=== PATIENT | female | born 1980 | race Caucasian/White ===

== ENCOUNTER 2016-06-10 16:17 | Emergency (ER) | payer OTHER ==
[2016-06-10] MEDS ORDERED: HYDROcod/ACETAM 5/325 MG TABLET PO STA (17:52)
[2016-06-10] MEDS ORDERED: HYDROcod/ACETAM 5/325 MG TABLET ONE (18:05)
== END 2016-06-10 18:45 | disposition home or self-care (01) ==
DX: S67.21XA Crushing injury of right hand, initial encounter (principal); S60.221A Contusion of right hand, initial encounter; W31.89XA Contact with other specified machinery, initial encounter; Y93.89 Activity, other specified; Y92.69 Other specified industrial and construction area as the place of occurrence of the external cause; Y99.0 Civilian activity done for income or pay; Z87.891 Personal history of nicotine dependence
CPT/HCPCS: 1040M; 29125; 73130; 99283; A9270

== ENCOUNTER 2016-12-06 17:01 | Emergency (ER) | payer OTHER ==
--- NOTE | 2016-12-06 17:44 | ED Physician Documentation ---
PD HPI ABD PAIN - Stated complaint Stated Complaint: BLOOD IN STOOL - Chief complaint Chief Complaint: Abd Pain - History obtained from History obtained from: Patient - History of Present Illness Timing - onset: Other (36-year-old woman with no significant past medical history with a small amount of hematochezia today and some lower abdominal cramping. 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: Endometriosis Musculoskeletal: Chronic back pain - Past Surgical History Past Surgical History: Yes HEENT: Tonsil/Adenoidectomy - Present Medications Home Medications: Ambulatory Orders Medication Instructions Recorded Confirmed Docusate Sodium 100 mg PO BID #60 capsule 12/06/16 - Allergies Allergies/Adverse Reactions: Allergies Allergy/AdvReac Type Severity Reaction Status Date / Time hydromorphone HCl * Allergy Respiratory Verified 06/10/16 16:30 [From Dilaudid] - Social History Does the pt smoke?: No Smoking Status: Former smoker Does the pt drink ETOH?: No Does the pt have substance abuse?: No - Immunizations Immunizations are current?: Yes - POLST Patient has POLST: No PD ED PE NORMAL - Vitals Vital signs reviewed: Yes - General General: Alert and oriented X 3, No acute distress - Abdomen Abdomen: Soft, Non tender - Rectal Rectal: Other (No external hemorrhoids or gross blood; with Margaret Castillo RN chaperoning) - Neuro Neuro: Alert and oriented X 3, Normal speech - Psych Psych: Normal mood, Normal affect Results - Vitals Vitals: Vital Signs - 24 hr 12/06/16 12/06/16 17:03 18:21 Temperature 37.3 C Heart Rate 73 68 Respiratory 18 14 Rate Blood Pressure 114/77 115/72 O2 Saturation 95 98 Oxygen O2 Source Room air - Labs Labs: Laboratory Tests 12/06/16 17:55 Hgb 13.8 Hct 39.7 PD MEDICAL DECISION MAKING - ED course ED course: She presents with a complaint of hematochezia, has a benign belly and no gross blood per rectum. Her H&H are reassuring. Advised conservative care with a stool softener at this juncture and to follow-up for colonoscopy if symptoms do not improve. Departure - Departure Disposition: 01 Home, Self Care Clinical Impression: Hematochezia Condition: Good Record reviewed to determine appropriate education?: Yes Instructions: ED Hematochezia Stable Follow-Up: CHUCK MATA MD [Provider Admit Priv/Credential] - Prescriptions: Docusate Sodium 100 mg PO BID #60 capsule Comments: Take a stool softener and drink plenty of fluids. If symptoms do not go away after a few days follow-up with the surgeon listed on this form for evaluation for potential colonoscopy. Discharge Date/Time: 12/06/16 18:26
[2016-12-06 18:02] LABS: HCT - HEMATOCRIT 39.7 % (37.0-47.0); HGB - HEMOGLOBIN 13.8 g/dL (12.0-16.0)
[2016-12-06 18:22] VITALS: BP 115/72
== END 2016-12-06 18:26 | disposition home or self-care (01) ==
LOC: ED 17:01
DX: K92.1 Melena (principal); Z87.891 Personal history of nicotine dependence
CPT/HCPCS: 36415; 85014; 85018; 99283

== ENCOUNTER 2017-09-17 12:58 | Outpatient (CLI) | payer MEDICAID | END 2017-09-17 12:59 | disposition critical access hospital (66) | LOC: EMS 12:58 | PROVIDERS: ATTEND Surgery | DX: S69.91XA Unspecified injury of right wrist, hand and finger(s), initial encounter (principal); W01.0XXA Fall on same level from slipping, tripping and stumbling without subsequent striking against object, initial encounter | CPT/HCPCS: A0425; A0429 ==

== ENCOUNTER 2017-09-17 13:42 | Emergency (ER) | payer MEDICAID, OTHER ==
[2017-09-17 13:59] VITALS: BP 115/83
--- NOTE | 2017-09-17 14:05 | ED Physician Documentation ---
PD HPI UPPER EXT INJURY - Stated complaint Stated Complaint: FALL/POSS BROKEN WRIST - Chief complaint Chief Complaint: Ext Problem - History obtained from History obtained from: Patient, EMS - History of Present Illness Location: Right, Wrist Type of injury: Fall Where injury occurred: Home Timing - onset: How many hours ago (1) Timing - duration: Hours (1) Timing - details: Abrupt onset Pain level max: 8 Pain level now: 8 Improved by: Rest Worsened by: Moving, Palpating Associated symptoms: Swelling. No: Weakness, Numbness, Tingling Contributing factors: No: Prior ortho surgery Recently seen: Not recently seen - Additonal information Additional information: R wrist pain s/p falling backwards while running from [place]. Pt is left handed. 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 Musculoskeletal: Chronic back pain - Past Surgical History Past Surgical History: Yes HEENT: Tonsil/Adenoidectomy - Present Medications Home Medications: Ambulatory Orders Medication Instructions Recorded Confirmed Docusate Sodium 100 mg PO BID #60 capsule 12/06/16 Hydrocodone/Acetaminophen 1 - 2 each PO Q6H PRN #14 tablet 09/17/17 [Hydrocodon-Acetaminophen 5-325] - Allergies Allergies/Adverse Reactions: Allergies Allergy/AdvReac Type Severity Reaction Status Date / Time hydromorphone HCl * Allergy Respiratory Verified 06/10/16 16:30 [From Dilaudid] - Social History Does the pt smoke?: No Smoking Status: Never smoker Does the pt drink ETOH?: No Does the pt have substance abuse?: No - Immunizations Immunizations are current?: Yes - POLST Patient has POLST: No PD ED PE NORMAL - Vitals Vital signs reviewed: Yes - General General: Alert and oriented X 3 - HEENT HEENT: Moist mucous membranes - Neck Neck: Supple, no meningeal sign - Cardiac Cardiac: RRR, Strong equal pulses - Respiratory Respiratory: No respiratory distress, Clear bilaterally - Abdomen Abdomen: Soft, Non tender - Back Back: No spinal TTP - Derm Derm: Warm and dry - Extremities Extremities: Other (R wrist - distal radius deformity. NVI. o/w normal exam. ) - Neuro Neuro: Alert and oriented X 3 - Psych Psych: Normal mood, Normal affect Results - Vitals Vitals: Vital Signs - 24 hr 09/17/17 13:45 Temperature 36.6 C Heart Rate 73 Respiratory 16 Rate Blood Pressure 115/83 H O2 Saturation 100 Oxygen O2 Source Room air - Rads (name of study) R wrist xray Radiology: Prelim report reviewed, EMP read contemporaneously, See rad report ( Distal radius intra-articular fracture with 18 degrees of angulation. ) R wrist post reduction Radiology: Prelim report reviewed, EMP read contemporaneously, See rad report ( Improved alignment with distal radius in neutral position. ) Procedures - Splint (location) R wrist Splint applied by: Physician, Tech Type of splint: Fiberglass, Short arm, Sugar tong Other: Patient tolerated well, No complications, Neurovascular intact, Good alignment, Sling provided - Reduction Body part reduced: Right, Wrist Fracture or dislocation: Fracture Anesthesia: Hematoma block, Lidocaine (enter cc) (10) Reduction aftercare: NV intact, Xray confirms reduction, Alignment improved, Splint applied (sugar tong), Sling PD MEDICAL DECISION MAKING - ED course Complexity details: reviewed results, re-evaluated patient, considered differential, d/w patient ED course: Patient is a 37-year-old female who presents to the emergency department with a right distal radius fracture. Hematoma block was utilized and the fracture was reduced under closed manipulation. Sugar tong splint applied. Will prescribe pain medication for home. Neurovascularly intact. We will have her follow-up with orthopedics for further evaluation and care. Patient counseled regarding signs and symptoms for which I believe and urgent re-evaluation would be necessary. Patient with good understanding of and agreement to plan and is comfortable going home at this time This document was made in part using voice recognition software. While efforts are made to proofread this document, sound alike and grammatical errors may occur. Patient is left-handed Departure - Departure Disposition: Home, Self Care Clinical Impression: Distal radius fracture, right Qualifiers: Encounter type: initial encounter Fracture type: closed Fracture morphology: unspecified fracture morphology Qualified Code(s): S52.501A - Unspecified fracture of the lower end of right radius, initial encounter for closed fracture Condition: Good Instructions: ED Fx Forearm Radius Ulna Redu Requ Follow-Up: [facility] [Provider Group] - Within 1 week Prescriptions: Hydrocodone/Acetaminophen [Hydrocodon-Acetaminophen 5-325] 1 - 2 each PO Q6H PRN #14 tablet PRN Reason: pain Comments: Keep the splint on and wear the sling until released by orthopedics. Elevate the area as much as you can. Return if you worsen. You need to follow-up with orthopedics within the next week for repeat evaluation. Do not drink alcohol or drive while on narcotic pain medicine. Note that many narcotic pain relievers also contain tylenol/acetaminophen. Please ensure that your total dose of acetaminophen from all sources does not exceed 3 grams (3000mg) per day. You may constipated on this medication, take a stool softener such as "Colace" twice a day while you are on it. Also recommend a obov-qgt-[id number] laxative such as senna or MiraLAX any day that you do not have a bowel movement. If you received narcotic pain medication in the emergency department, do not drive or operate machinery for the next 24 hours. Discharge Date/Time: 09/17/17 15:30
[2017-09-17] MEDS: KETOROLAC 60 MG/2 ML VIAL IVP STA (14:14)
--- NOTE | 2017-09-17 14:31 | XRAY Report ---
EXAM: RIGHT WRIST RADIOGRAPHY EXAM DATE: 09/17/2017 02:25 PM. CLINICAL HISTORY: R wrist pain s/p fall. COMPARISON: None. TECHNIQUE: 4 views. FINDINGS: Bones: There is an intra-articular comminuted fracture of the distal radial metaphysis. There is appr oximately 18 degrees of angulation on the lateral image. There is mild impaction. No ulna or carpal f racture. Joints: Normal. No subluxations. Soft Tissues: Normal. No soft tissue swelling. IMPRESSION: Distal radius intra-articular fracture with 18 degrees of angulation. [facility] Referring Provider Line: [phone] SITE ID: [id number]
--- NOTE | 2017-09-17 14:31 | XRAY Preliminary Report ---
Exam: XR WRIST 4 VIEW RT IMPRESSION: Distal radius intra-articular fracture with 18 degrees of angulation. [facility] SITE ID: [id number]
[2017-09-17] MEDS ORDERED: LIDOCAINE 2% 10 ML MDV SUBQ STA (14:39)
--- NOTE | 2017-09-17 15:37 | XRAY Preliminary Report ---
Exam: XR WRIST 2 VIEW RT IMPRESSION: Improved alignment with distal radius in neutral position. [facility] SITE ID: [id number]
--- NOTE | 2017-09-17 15:37 | XRAY Report ---
EXAM: RIGHT WRIST RADIOGRAPHY EXAM DATE: 09/17/2017 03:16 PM. CLINICAL HISTORY: Fracture post reduction. COMPARISON: 09/17/2017. TECHNIQUE: 2 views. FINDINGS: Bones: There is a distal radius comminuted fracture. Offset is decreased. The distal radius is in maurice tral position on the lateral image. Joints: Normal. No subluxations. Soft Tissues: The cast has been applied. IMPRESSION: Improved alignment with distal radius in neutral position. [facility] Referring Provider Line: [phone] SITE ID: [id number]
== END 2017-09-17 15:30 | disposition home or self-care (01) ==
LOC: EDUNIT# → ED 13:42
DX: S52.571A Other intraarticular fracture of lower end of right radius, initial encounter for closed fracture (principal); W01.0XXA Fall on same level from slipping, tripping and stumbling without subsequent striking against object, initial encounter; Y93.02 Activity, running; Y92.007 Garden or yard of unspecified non-institutional (private) residence as the place of occurrence of the external cause
CPT/HCPCS: 25605; 96374; 99283; 99284

== ENCOUNTER 2018-06-26 13:23 | Emergency (ER) | payer MEDICAID ==
[2018-06-26 13:30] VITALS: BP 125/77
--- NOTE | 2018-06-26 13:52 | ED Physician Documentation ---
History of Present Illness - Stated complaint Stated Complaint: FEMALE - Chief complaint Chief Complaint: General - History obtained from History obtained from: Patient - History of Present Illness Timing: Today Pain level max: 0 Pain level now: 0 Improved by: nothing Worsened by: nothing - Additonal information Additional information: 38-year-old female is asymptomatic today. She is requesting an STD check. Her partner recently tested positive for Ureaplasma as well as mycoplasma hominis. He is not having symptoms either but was placed on antibiotics. 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 Musculoskeletal: Chronic back pain - Past Surgical History Past Surgical History: Yes HEENT: Tonsil/Adenoidectomy - Present Medications Home Medications: Ambulatory Orders Medication Instructions Recorded Confirmed No Known Home Medications 06/26/18 06/26/18 - Allergies Allergies/Adverse Reactions: Allergies Allergy/AdvReac Type Severity Reaction Status Date / Time hydromorphone HCl * Allergy Respiratory Verified 06/26/18 13:29 [From Dilaudid] - Social History Does the pt smoke?: No Smoking Status: Never smoker Does the pt drink ETOH?: No Does the pt have substance abuse?: No - Immunizations Immunizations are current?: Yes - POLST Patient has POLST: No PD ED PE NORMAL - Vitals Vital signs reviewed: Yes - General General: Alert and oriented X 3, No acute distress - HEENT HEENT: Moist mucous membranes - Neck Neck: Supple, no meningeal sign - Cardiac Cardiac: RRR - Respiratory Respiratory: No respiratory distress, Clear bilaterally - Abdomen Abdomen: Soft, Non tender, Non distended - Derm Derm: Warm and dry - Neuro Neuro: Alert and oriented X 3 Results - Vitals Vitals: Vital Signs - 24 hr 06/26/18 13:26 Temperature 36.5 C Heart Rate 81 Respiratory 18 Rate Blood Pressure 125/77 O2 Saturation 100 Oxygen O2 Source Room air PD MEDICAL DECISION MAKING - ED course Complexity details: considered differential, d/w patient ED course: Urine will be sent for gonorrhea and Chlamydia testing. She declines a pelvic at this time. I think this is reasonable as she does not have symptoms. The organisms that her partner tested for are likely genital gonzalo and likely do not represent an infectious etiology. Will hold off on any treatment at this point. Patient counseled regarding signs and symptoms for which I believe and urgent re-evaluation would be necessary. Patient with good understanding of and agreement to plan and is comfortable going home at this time This document was made in part using voice recognition software. While efforts are made to proofread this document, sound alike and grammatical errors may occur. Departure - Departure Disposition: 01 Home, Self Care Clinical Impression: Encounter for medical assessment Condition: Good Instructions: STD Follow-Up: Yanira Quintanilla ARNP, MEDICAL ILLUSTRATOR-C [Primary Care Provider] - As Needed Comments: Mycoplasma hominis and Ureaplasma are normally part of the normal genital gonzalo and unless they are causing symptoms do not need treatment. Discharge Date/Time: 06/26/18 13:56
== END 2018-06-26 13:56 | disposition home or self-care (01) ==
LOC: ED 13:23
DX: Z11.3 Encounter for screening for infections with a predominantly sexual mode of transmission (principal)
CPT/HCPCS: 87491; 87591; 99282

== ENCOUNTER 2019-07-10 10:05 | Emergency (ER) | payer MEDICAID, OTHER ==
[2019-07-10] MEDS ORDERED: SODIUM CHLORIDE 0.9% 1,000 ML IV ONE (11:39)
[2019-07-10] MEDS ORDERED: DEXAMETHASONE 10 MG/ML VIAL IVP STA (11:39)
[2019-07-10] MEDS ORDERED: diphenhydrAMINE INJ 50 MG/ML VIAL IVP STA (11:39)
[2019-07-10] MEDS ORDERED: KETOROLAC 15 MG/ML VIAL IVP STA (11:40)
--- NOTE | 2019-07-10 11:55 | ED Physician Documentation ---
PD HPI HEADACHE - Stated complaint Stated Complaint: DUFFY - Chief complaint Chief Complaint: Neuro - History obtained from History obtained from: Patient (39-year-old female comes in today with a chief complaint of a headache on the right base of her skull. This is the first time she has had a headache like this. This is been ongoing for a week and a half. 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 She denies any triggering event or activity at work or her personal life. She has limited range of motion of her neck secondary to the pain. She denies any numbness tingling loss of strength to the right upper extremity. She denies nausea vomiting, vision changes, hearing problems. 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 Musculoskeletal: Chronic back pain - Past Surgical History Past Surgical History: Yes HEENT: Tonsil/Adenoidectomy - Present Medications Home Medications: Ambulatory Orders Medication Instructions Recorded Confirmed Ibuprofen [Motrin] 800 mg PO Q8H PRN #30 tablet 07/10/19 - Allergies Allergies/Adverse Reactions: Allergies Allergy/AdvReac Type Severity Reaction Status Date / Time hydromorphone HCl * Allergy Respiratory Verified 07/10/19 10:09 [From Dilaudid] - Social History Does the pt smoke?: No Smoking Status: Never smoker Does the pt drink ETOH?: No Does the pt have substance abuse?: No - Immunizations Immunizations are current?: Yes - POLST Patient has POLST: No PD ED PE NORMAL - General General: Alert and oriented X 3, Well developed/nourished - HEENT HEENT: Atraumatic, PERRL, EOMI, Ears normal, Moist mucous membranes, Pharynx benign - Neck Neck: No adenopathy - Cardiac Cardiac: RRR, No murmur - Respiratory Respiratory: No respiratory distress, Clear bilaterally - Back Back: No CVA TTP PD ED PE EXPANDED - Neck Neck: Other (Tender to palp to the right rhomboid, right trapezium. Right trapezium is tense. Limited active range of motion to the neck secondary to pain on the right side.) Results - Vitals Vitals: Vital Signs - 24 hr 07/10/19 07/10/19 07/10/19 10:10 10:54 12:17 Temperature 36.5 C Heart Rate 64 58 L Respiratory 14 14 Rate Blood Pressure 119/83 H 114/56 L O2 Saturation 98 100 100 Oxygen O2 Source Room air Departure - Departure Disposition: 01 Home, Self Care Clinical Impression: Headache Qualifiers: Headache type: tension-type Headache chronicity pattern: acute headache Intractability: not intractable Qualified Code(s): G44.209 - Tension-type headache, unspecified, not intractable Condition: Good Instructions: ED Headache Tension Prescriptions: Ibuprofen [Motrin] 800 mg PO Q8H PRN #30 tablet PRN Reason: PAIN &/OR FEVER Comments: as we discussed in the Ed today. Take a couple of days off of work and rest. i have given you a prescription for Ibuprofen 800 mg, take very 8 hours as needed for pain. As we discussed, it will take a couple of days for the tenesion in your neck to resolve. Apply warm, moist heat to the shoulder/ neck region for 15 - 30 mins, then do gentle range of motion & stretching with / to your neck and I showed you. You could also look at getting a massage as well. If your symptoms do not start to improve after 2-3 days, follow up with your PCP for further evaluation. Forms: Activity restrictions
[2019-07-10 12:17] VITALS: BP 114/56
== END 2019-07-10 13:21 | disposition home or self-care (01) ==
LOC: ED 10:05
DX: G44.209 Tension-type headache, unspecified, not intractable (principal)
CPT/HCPCS: 96374; 99283; 99284; J1200

== ENCOUNTER 2022-06-29 09:45 | Emergency (ER) | payer OTHER ==
--- NOTE | 2022-06-29 11:05 | ED Physician Documentation ---
PD HPI HEADACHE - Stated complaint Stated Complaint: MIGRAINE - Chief complaint Chief Complaint: Neuro - History obtained from History obtained from: Patient - History of Present Illness Timing - onset: How many days ago (2) Timing - onset during: Light activity Timing - duration: Days (2) Timing - details: Gradual onset, Still present Worst headache ever?: No: Worst headache ever? (has had similar but not for many years when younger. No recent illness, fever, head injury.) Location: Global Quality: Throbbing Associated symptoms: Nausea. No: Fever, Stiff neck, Weakness, Numbness, Vision changes Improved by: Rest, Dark room. No: Meds (tried Ibuprofen and Tylenol at home.) Worsened by: Light, Noise Contributing factors: No: Recent illness, Trauma Similar symptoms before: Diagnosis (migraines when younger.) Recently seen: Not recently seen Review of Systems Constitutional: denies: Fever, Chills Eyes: reports: Photophobia. denies: Loss of vision Nose: denies: Rhinorrhea / runny nose, Congestion Throat: denies: Sore throat Respiratory: denies: Cough GI: reports: Nausea. 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 Musculoskeletal: Chronic back pain - Past Surgical History Past Surgical History: Yes HEENT: Tonsil/Adenoidectomy - Present Medications Home Medications: Ambulatory Orders Medication Instructions Recorded Confirmed Ibuprofen [Motrin] 800 mg PO Q8H PRN #30 tablet 07/10/19 Ondansetron Odt [Zofran] 4 mg TL Q6H PRN #10 tablet 06/29/22 Prochlorperazine [Compazine] 5 mg PO Q8H PRN #10 tablet 06/29/22 Rizatriptan Benzoate [Rizatriptan] 5 mg PO Q8H PRN #5 tablet 06/29/22 - Allergies Allergies/Adverse Reactions: Allergies Allergy/AdvReac Type Severity Reaction Status Date / Time hydromorphone HCl * Allergy Respiratory Verified 06/29/22 09:55 [From Dilaudid] - Social History Does the pt smoke?: No Smoking Status: Never smoker Does the pt drink ETOH?: No Does the pt have substance abuse?: No - Immunizations Immunizations are current?: Yes - POLST Patient has POLST: No PD ED PE NORMAL - Vitals Vital signs reviewed: Yes - General General: Alert and oriented X 3, No acute distress, Well developed/nourished - HEENT HEENT: PERRL, EOMI (light sensitive), Other (fundi appear normal. ) - Neck Neck: Supple, no meningeal sign, No adenopathy - Derm Derm: Normal color, Warm and dry - Neuro Neuro: Alert and oriented X 3, No motor deficit, No sensory deficit Results - Vitals Vitals: Vital Signs - 24 hr 06/29/22 06/29/22 06/29/22 09:53 12:00 12:52 Temperature 36.4 C L Heart Rate 95 65 Respiratory 20 16 16 Rate Blood Pressure 117/83 H 105/74 O2 Saturation 99 98 06/29/22 06/29/22 13:33 13:50 Temperature 36.6 C Heart Rate 66 Respiratory 16 Rate Blood Pressure 103/67 O2 Saturation 99 Oxygen O2 Source Room air PD Medical Decision Making - ED course Complexity details: re-evaluated patient (mostly improved with IV fluids and toradol, compazine and benadryl (migraine cocktail). this is c/w migraine. Discussed with patient that might get some if starting pattern. Gave Rx for migraine meds to try for futher ones. ), considered differential (seems likely migraine, with symptoms c/w it. No red flags on history or exam to suggest need for workup. Can try treating as migraine. ), d/w patient Departure - Departure Disposition: 01 Home, Self Care Clinical Impression: Migraine headache Qualifiers: Migraine type: unspecified Status migrainosus presence: with status migrainosus Intractability: not intractable Qualified Code(s): G43.901 - Migraine, unspecified, not intractable, with status migrainosus Condition: Stable Record reviewed to determine appropriate education?: Yes Instructions: ED Headache Migraine Prescriptions: Prochlorperazine [Compazine] 5 mg PO Q8H PRN #10 tablet PRN Reason: Nausea / Vomiting Rizatriptan Benzoate [Rizatriptan] 5 mg PO Q8H PRN #5 tablet PRN Reason: Migraine Ondansetron Odt [Zofran] 4 mg TL Q6H PRN #10 tablet PRN Reason: Nausea / Vomiting Comments: This sounds and acts like a migraine headache. They can be persistent for several days at times. This should continue to drift away through the day today once its improving as it is. Stay well-hydrated today. Continue with Tylenol or ibuprofen if needed for some residual headache. Ondansetron if needed for nausea. Rest off work today and tomorrow as needed. For subsequent similar headaches, try certainly Tylenol ibuprofen initially but if not helping or if its just a strong headache, use a combination of the Compazine for nausea and migraine in conjunction with rizatriptan migraine specific medicines. See if that combination readily improves the migraine. I wrote a prescription for several of these to try over subsequent headaches. Hopefully this was a infrequent migraine today. However sometimes it will be part of a new pattern we may get them every few months or so. Follow-up with your primary care if occurring more frequently. Return to the ER if needed. I sent your prescriptions to your preferred pharmacy. Forms: Activity restrictions Discharge Date/Time: 06/29/22 13:51
[2022-06-29] MEDS: SODIUM CHLORIDE 0.9% 1,000 ML IV STA (11:40)
[2022-06-29] MEDS: KETOROLAC 15 MG/ML VIAL IVP STA (11:41)
[2022-06-29] MEDS: diphenhydrAMINE INJ 50 MG/ML VIAL IVP STA (11:42)
[2022-06-29] MEDS: PROCHLORPERAZINE 10 MG/2 ML VIAL IVP STA (11:43)
[2022-06-29] MEDS: ACETAMINOPHEN 325 MG TABLET PO STA (13:12)
[2022-06-29] MEDS: DEXAMETHASONE 10 MG/ML VIAL IVP STA (13:18)
[2022-06-29 13:35] VITALS: BP 103/67
== END 2022-06-29 13:51 | disposition home or self-care (01) ==
LOC: ED 09:45
DX: G43.901 Migraine, unspecified, not intractable, with status migrainosus (principal)
CPT/HCPCS: 96361; 96374; 96375; 99284; 99285; A9270; J1200

== ENCOUNTER 2023-01-09 16:40 | Outpatient (CLI) | payer MEDICAID, OTHER | END 2023-01-09 16:41 | disposition EMS.NT | LOC: EMS 16:40 | DX: M79.89 Other specified soft tissue disorders (principal); R07.89 Other chest pain; R42 Dizziness and giddiness; T63.441A Toxic effect of venom of bees, accidental (unintentional), initial encounter ==

== ENCOUNTER 2023-06-11 14:20 | Outpatient (CLI) | payer MEDICAID | END 2023-06-11 14:21 | disposition critical access hospital (66) | LOC: EMS 14:20 | DX: R07.89 Other chest pain (principal); R06.02 Shortness of breath; R53.1 Weakness; R42 Dizziness and giddiness; H53.8 Other visual disturbances | CPT/HCPCS: A0425; A0429; A0999 ==

== ENCOUNTER 2023-06-11 14:59 | Emergency (ER) | payer MEDICAID, OTHER ==
--- NOTE | 2023-06-11 15:06 | ED Physician Documentation ---
PD HPI CHEST PAIN - Stated complaint Stated Complaint: CP/SOA - History obtained from History obtained from: Patient - Additional information Additional information: She has been feeling a little ill all week with runny nose, cough and some fatigue and bodyaches. No fevers though. She had just woken up from a nap around 1:00 when she developed pretty severe substernal chest tightness which is now going away. It is associated with shortness of breath. She has been nauseous all week and not eating well. No possibility of . No personal nor family history of heart problems. No tobacco use. Denies pedal edema, calf pain, recent travel. Prehospital EKG was reportedly unremarkable. 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: Endometriosis Musculoskeletal: Chronic back pain - Past Surgical History Past Surgical History: Yes HEENT: Tonsil/Adenoidectomy - Present Medications Home Medications: Ambulatory Orders Medication Instructions Recorded Confirmed Ibuprofen [Motrin] 800 mg PO Q8H PRN #30 tablet 07/10/19 Ondansetron Odt [Zofran] 4 mg TL Q6H PRN #10 tablet 06/29/22 Prochlorperazine [Compazine] 5 mg PO Q8H PRN #10 tablet 06/29/22 Rizatriptan Benzoate [Rizatriptan] 5 mg PO Q8H PRN #5 tablet 06/29/22 - Allergies Allergies/Adverse Reactions: Allergies Allergy/AdvReac Type Severity Reaction Status Date / Time hydromorphone HCl * Allergy Respiratory Verified 06/11/23 15:06 [From Dilaudid] - Social History Does the pt smoke?: No Smoking Status: Never smoker Does the pt drink ETOH?: No Does the pt have substance abuse?: No - Immunizations Immunizations are current?: Yes - POLST Patient has POLST: No PD ED PE NORMAL - Vitals Vital signs reviewed: Yes - General General: Alert and oriented X 3, No acute distress - HEENT HEENT: Pharynx benign - Neck Neck: Supple, no meningeal sign, No bony TTP - Cardiac Cardiac: RRR, No murmur - Respiratory Respiratory: No respiratory distress, Clear bilaterally - Abdomen Abdomen: Non tender - Extremities Extremities: No edema, No calf tenderness / cord - Neuro Neuro: Alert and oriented X 3, Normal speech Results - Vitals Vitals: Vital Signs - 24 hr 06/11/23 06/11/23 15:06 15:08 Temperature 36.8 C 36.8 C Heart Rate 76 76 Respiratory 20 20 Rate Blood Pressure 133/90 H 133/90 H O2 Saturation 99 99 Oxygen O2 Source Room air - EKG (time done) 1520 EKG releavant findings:: EKG personally interpreted by author of this note. Relevant findings are: Rate: Rate (enter#) (62) Rhythm: NSR [place]: Normal Intervals: Normal MI QRS: Normal Ischemia: Normal ST segments - Labs Labs: Laboratory Tests 06/11/23 06/11/23 15:29 15:29 WBC 7.2 RBC 4.59 Hgb 14.1 Hct 41.7 MCV 90.8 MCH 30.7 MCHC 33.8 RDW 11.3 L Plt Count 263 MPV 9.0 Neut # (Auto) 5.4 Lymph # (Auto) 1.1 L [place] # (Auto) 0.4 Eos # (Auto) 0.2 Baso # (Auto) 0.1 Absolute Nucleated RBC 0.00 Nucleated RBC % 0.0 Sodium 137 Potassium 3.7 Chloride 109 Carbon Dioxide 23 Anion Gap 5.0 L BUN 9 Creatinine 0.6 Estimated GFR (MDRD) 110 Glucose 103 Calcium 8.8 Total Bilirubin 0.3 AST 24 ALT 21 Alkaline Phosphatase 74 Troponin I High Sens 2.3 Total Protein 7.0 Albumin 4.2 Globulin 2.8 Albumin/Globulin Ratio 1.5 Lipase 51 - Rads (name of study) chest xr Relevant Findings:: Final report received, EMP independent interpretation of test PD Medical Decision Making - ED course ED course: She presents with atypical chest pain associate with anxiety. Workup including x-ray, EKG, CBC, CMP, and troponin was normal/negative. Heart score 0. Nothing in the history or physical to suggest PE. Nothing in the history or physical to suggest dissection. Departure - Departure Disposition: 01 Home, Self Care Clinical Impression: Chest pain Condition: Good Record reviewed to determine appropriate education?: Yes Instructions: ED Chest Pain NonCardiac Comments: Labs, EKG, and chest x-ray are all normal suggesting the pain is not serious nor from your heart. Call your doctor to arrange a follow-up appointment, make the next available appointment. In the interim, return anytime if worse or if new symptoms develop.
[2023-06-11 15:34] LABS: BASOPHILS # (AUTO) 0.1 10^3/uL (0.0-0.1); BASOPHILS % (AUTO) 0.7 %; EOSINOPHILS # (AUTO) 0.2 10^3/uL (0.0-0.7); EOSINOPHILS % (AUTO) 3.2 %; HCT - HEMATOCRIT 41.7 % (37.0-47.0); HGB - HEMOGLOBIN 14.1 g/dL (12.0-16.0); LYMPHOCYTES # (AUTO) 1.1 10^3/uL (1.5-3.5); LYMPHOCYTES % (AUTO) 14.8 %; MEAN CORPUSCULAR HEMOGLOBIN 30.7 pg (27.0-31.0); MEAN CORPUSCULAR HGB CONC 33.8 g/dL (32.0-36.0); MEAN CORPUSCULAR VOLUME 90.8 fL (81.0-99.0); MONOCYTES # (AUTO) 0.4 10^3/uL (0.0-1.0); MONOCYTES % (AUTO) 5.4 %; NEUTROPHILS # (AUTO) 5.4 10^3/uL (1.5-6.6); NEUTROPHILS % (AUTO) 75.6 %; PLT - PLATELET COUNT 263 10^3/uL (130-450); RED BLOOD COUNT 4.59 10^6/uL (4.20-5.40); RED CELL DISTRIBUTION WIDTH 11.3 % (12.0-15.0); WHITE BLOOD COUNT 7.2 x10^3/uL (4.8-10.8)
--- NOTE | 2023-06-11 15:53 | XRAY Report ---
PROCEDURE: Chest 1V INDICATIONS: Chest Pain TECHNIQUE: One view of the chest was acquired. COMPARISON: None. FINDINGS: Surgical changes and devices: None. Lungs and pleura: No pleural effusions or pneumothorax. Lungs are clear. Mediastinum: Mediastinal contours appear normal. Heart size is normal. Bones and chest wall: No suspicious bony lesions. Overlying soft tissues appear unremarkable. IMPRESSION: No acute cardiopulmonary process. Reviewed by: Ameena Connolly MD on 06/11/2023 3:51 PM PST Approved by: Ameena Connolly MD on 06/11/2023 3:51 PM PST Station ID: [id number]
[2023-06-11 15:57] LABS: ALBUMIN 4.2 g/dL (3.2-5.5); ALBUMIN/GLOBULIN RATIO 1.5 (1.0-2.2); BILIRUBIN,TOTAL 0.3 mg/dL (0.2-1.0); CALCIUM 8.8 mg/dL (8.5-10.3); CREATININE 0.6 mg/dL (0.6-1.3); POTASSIUM 3.7 mmol/L (3.5-4.5)
[2023-06-11 15:58] LABS: TROPONIN I HIGH SENSITIVITY 2.3 ng/L (2.3-14.8)
[2023-06-11] MEDS: SODIUM CHLORIDE 0.9% 1,000 ML IV STA (16:12)
[2023-06-11 16:55] VITALS: BP 101/69; O2SAT 100
== END 2023-06-11 16:53 | disposition home or self-care (01) ==
LOC: EDUNIT# → ED 14:59
DX: R07.89 Other chest pain (principal); Z79.899 Other long term (current) drug therapy
CPT/HCPCS: 36415; 80053; 83690; 84484; 85025; 93005; 99283; 99284

== ENCOUNTER 2023-07-26 08:00 | Outpatient (CLI) | payer MEDICAID ==
--- NOTE | 2023-07-26 19:36 | XRAY Report ---
PROCEDURE: Wrist 3+V LT INDICATIONS: SPRAIN OF LEFT WRIST TECHNIQUE: 3 views of the wrist were acquired. COMPARISON: None. FINDINGS: Bones: No fractures or dislocations. Subchondral cyst, nonspecific finding, in the distal ulna. Thi s can be related to degenerative change. No suspicious bony lesions. Soft tissues: No suspicious soft tissue calcifications or masses. IMPRESSION: No acute bony abnormality. Reviewed by: Odell Mendez MD on 07/26/2023 7:35 PM PDT Approved by: Odell Mendez MD on 07/26/2023 7:35 PM PDT Station ID: [id number]
== END 2023-07-26 23:59 | disposition home or self-care (01) ==
LOC: DI.S 08:00
PROVIDERS: ATTEND Emergency Medicine
DX: S63.8X2A Sprain of other part of left wrist and hand, initial encounter (principal)

== ENCOUNTER 2023-07-31 12:25 | Outpatient (CLI) | payer MEDICAID ==
--- NOTE | 2023-08-01 09:45 | Mammography Report ---
UNILATERAL LEFT DIGITAL DIAGNOSTIC MAMMOGRAM 3D/2D WITH LATEROMEDIAL SPOT COMPRESSION: 07/31/2023 CLINICAL: Patient returns today to evaluate a focal asymmetry in the left breast. Comparison is made to exam dated: 06/26/2023 mammogram - [facility]. The left breast is heterogeneously dense, which may obscure small masses (category c / 51-75% glandul ar tissue). The focal asymmetry in the left breast at 12 o'clock middle depth is less prominent on additional vie ws. No other significant masses or calcifications are seen in the breast. IMPRESSION: INCOMPLETE: NEEDS ADDITIONAL IMAGING EVALUATION The focal asymmetry in the left breast is indeterminate. A targeted ultrasound of the left breast is recommended and will be performed immediately following this exam. Based on the Tyrer Cuzick model (a risk assessment model) the patient's lifetime risk is 13.1% and he r 10 year risk is 1.9%. According to the ACR, ACS, and NCCN guidelines, an annual breast MRI exam jamari ng with mammogram is recommended if the patient's lifetime risk is 20% or greater. This exam was interpreted at Station ID: [id number]. NOTE: For mammograms, a report in lay terms will be sent to the patient. Approximately 15% of breast malignancies will not be visualized mammographically. In the management of a palpable breast mass, a negative mammogram must not discourage biopsy of a clinically suspicious lesion. Electronically Signed By: Dora Gautam M.D. lk/:07/31/2023 13:27:45 ACR BI-RADS Category 0: Incomplete 3340F PARENCHYMAL PATTERN: (D) - The breast(s) demonstrate(s) heterogeneously dense fibroglandular alexandre shi. BI-RADS CATEGORY: (0) - 0 Ultrasound [id number] Immediate follow-up LATERALITY: (B)
--- NOTE | 2023-08-01 09:45 | Ultrasound Report ---
LIMITED ULTRASOUND OF LEFT BREAST: 07/31/2023 CLINICAL: Patient returns today to evaluate an asymmetry in the left breast. Comparison is made to exam dated: 06/26/2023 mammogram - [facility]. Color flow ultrasound of the left breast 12 o'clock region was performed on the areas of interest. Lee scale images of the real-time examination were reviewed. IMPRESSION: NEGATIVE There is no sonographic evidence of malignancy. There is no sonographic abnormality seen in the left breast to correspond with the mammographic findi ng which is most consistent with normal superimposed fibroglandular tissue. A 1 year screening mammogram is recommended. This exam was interpreted at Station ID: [id number]. Electronically Signed By: Dora Gautam M.D. lk/:07/31/2023 13:29:15 Ultrasound BI-RADS: 1 Negative BI-RADS CATEGORY: (1) - 1 RECOMMENDATION: (ANNUAL) - Recommend routine annual screening mammography. [id number] 1 year screening LATERALITY: (B)
== END 2023-07-31 12:26 | disposition home or self-care (01) ==
LOC: DI 12:25
PROVIDERS: ATTEND Nurse Practitioner Acute Care
DX: R92.8 Other abnormal and inconclusive findings on diagnostic imaging of breast (principal); R92.332 Mammographic heterogeneous density, left breast